=== PATIENT | female | born 1970 | race Caucasian/White ===

== ENCOUNTER 2019-11-10 11:44 | Outpatient (CLI) | payer OTHER, SELFPAY ==
--- NOTE | 2019-11-10 12:09 | XRR_ITS ---
PROCEDURE INFORMATION: Exam: XR Chest, 2 Views Exam date and time: 11/10/2019 12:18 PM Age: 49 years old Clinical indication: Cough TECHNIQUE: Imaging protocol: XR of the chest Views: 2 views. COMPARISON: No relevant prior studies available. FINDINGS: Lungs: Hyperinflation and mild interstitial prominence. Pleural space: No pleural effusion. Heart/Mediastinum: Normal configuration of the heart. Bones/joints: Cervical spine fusion. Other findings: Status post cholecystectomy. XR/XR chest 2V* [id number] IMPRESSION: Hyperinflation and mild interstitial prominence.
== END 2019-11-10 11:45 | disposition home or self-care (01) ==
LOC: WPI 11:53
PROVIDERS: PCP Nurse Practitioner Family; Referring Provider Nurse Practitioner Family; Visit Provider Specialist
DX: R05 Cough (principal)
CPT/HCPCS: 71046

== ENCOUNTER 2019-11-17 14:42 | Outpatient (CLI) | payer OTHER, SELFPAY ==
--- NOTE | 2019-11-17 14:46 | MR_ITS ---
WS: [id number] MRI HEAD WITH CONTRAST WITH ATTENTION TO THE INTERNAL AUDITORY CANALS TECHNIQUE: Sagittal T1, T2 axial, T2 axial flair, axial susceptibility weighted imaging, axial diffus ion weighted images, and coronal T2 images were obtained. Pre and post T1 axial and post T1 coronal i mages. ADC and FSPGR images. Post gadolinium images with attention to the internal auditory canals. A xial fiesta imaging. CLINICAL INFORMATION: ACUTE SUPPURATIVE OTITIS MEDIA W/O RUPTURE OF RT EARDRUM;MULU COMPARISON: None. FINDINGS: No evidence of restricted diffusion to suggest acute ischemia. Ventricular system and basal cisterns are patent. No suspicious intracranial signal abnormalities. Normal nicolas-white differentiation. No ex tra-axial fluid collections. Normal posterior fossa. Normal vascular flow voids at the skull base. Mi ld mucosal thickening in the mastoid air cells. Slightly low-lying cerebellar tonsils measuring 5 mm below the foramen magnum consistent with incidental cerebellar tonsillar ectopia. No hemosiderin on susceptibly weighted images. Proximal 7th and 8th cranial nerves are normal in appe arance. Normal trigeminal nerve root entry zones. No evidence of enhancing IAC or CP angle mass. Norm al optic chiasm and pituitary infundibulum. Meckel's cave and cavernous sinuses appear normal. MR/MR iac's wo/w con* [id number] IMPRESSION: 1. No evidence of restricted diffusion to suggest acute ischemia. 2. No evidence of enhancing IAC or CP angle mass. 3. No suspicious intracranial signal abnormalities. 4. Mild mucosal thickening in the right greater than left mastoid air cells. P aranasal sinuses are well aerated. 5. Incidental low-lying cerebellar tonsils.
== END 2019-11-17 14:43 | disposition home or self-care (01) ==
LOC: RADSHAW 14:42
PROVIDERS: PCP Nurse Practitioner Family; Visit Provider Specialist
DX: H90.3 Sensorineural hearing loss, bilateral (principal); R05 Cough; K21.9 Gastro-esophageal reflux disease without esophagitis; H69.81 Other specified disorders of Eustachian tube, right ear
CPT/HCPCS: 70553; A9579